=== PATIENT | male | born 1990 | race Caucasian/White ===

== ENCOUNTER 2020-12-05 21:57 | Emergency (ER) | payer OTHER ==
[~2020-12-05] VITALS: Ht 177.8 cm; Wt 79.6 kg
[2020-12-05] MEDS ORDERED: TRAMADOL 50 MG50 MG PO (22:12)
[2020-12-05 22:37] LABS: HEMATOCRIT 44.2 % (42.0-52.0); HEMOGLOBIN 14.9 gm/dL (14.0-18.0); MCH 31.6 pg (26.0-34.0); MCHC 33.6 g/dL (28.0-37.0); RBC 4.7 mil/uL (4.50-6.00); RDW-CV 14.7 % (10.5-14.5); WBC 8.8 thou/uL (4.0-11.0)
[2020-12-05 22:45] LABS: CALCIUM 8.6 mg/dL (8.5-10.1); CREATININE 0.5 mg/dL (0.6-1.3); POTASSIUM 3.5 mmol/L (3.5-5.1)
[2020-12-05 22:50] LABS: TOTAL BILIRUBIN 0.2 mg/dL (<0.1-1.0); TOTAL PROTEIN 7.6 g/dL (6.4-8.2)
[2020-12-06 05:59] VITALS: BP 102/64
== END 2020-12-06 05:59 | disposition home or self-care (01) ==
LOC: M.ERS 21:57
PROVIDERS: Personal Emergency Response Attendant
DX: F10.129 Alcohol abuse with intoxication, unspecified (principal); Y90.8 Blood alcohol level of 240 mg/100 ml or more